=== PATIENT | female | born 1955 | race Two or more races ===

== ENCOUNTER 2017-11-30 09:38 | Outpatient (CLI) | payer OTHER | END 2017-11-30 10:08 | disposition home or self-care (01) | LOC: NUCLEAR 09:38 | DX: M15.8 Other polyosteoarthritis (principal); M06.4 Inflammatory polyarthropathy | CPT/HCPCS: 78315; A9503 ==

== ENCOUNTER 2022-02-17 11:21 | Inpatient (IN) | payer OTHER ==
[~2022-02-17] VITALS: Ht 154.9 cm; Wt 117.9 kg
[2022-02-17] MEDS ORDERED: VALSARTAN-HCTZ1 EAC3 PO (12:08)
[2022-02-17] MEDS ORDERED: ATORVASTATIN CA20 MG PO (12:08)
[2022-02-17] MEDS ORDERED: CARVEDILOL25 M1 PO (12:08)
[2022-02-17] MEDS ORDERED: SYNTHROID150 MCG (12:09)
[2022-02-17] MEDS ORDERED: SYMBICORT 16010.2 GM IH (12:09)
[2022-02-17] MEDS ORDERED: DOXAZOSIN MESYLA2 MG PO (12:09)
[2022-02-17] MEDS ORDERED: ACID REDUCER20 M1 PO (12:10)
[2022-02-17] MEDS ORDERED: HUMIRA(CF)40 MG/0.4 SQ (12:11)
--- NOTE | 2022-02-17 12:18 | NUR ---
SE RECIBE PACIENTE ALERTA, ORIENTADA X 3 ESFERAS REFIERE SENTIRSE AHOGADA, Y HINCHADA SE ESTIMAN S/V JU=[id number] SE PRESENTA A OBICARIE, SE UBICA EN AREA DE OBSERVACION
--- NOTE | 2022-02-17 13:59 | NUR ---
PTE EVALUADA POR DRA. LANDAVERDE. SE ORIENTA PTE SOBRE TRATAMIENTO A SEGUIR, EL CUAL REFIERE ENTENDER. SE CONECTA A MONITOR CARDIACO Y OXIMETRIA DE PULSO CONTINUA, SE COLECTAN MUESTRAS Y SE CANALIZA PTE UTILIZANDO MEDIDAS ASEPTICAS. SE ADMINISTRAN MEDICAMENTO MAGALY ORDEN MEDICA. SE [place] FOLLEY CATHETER #16 UTILIZANDO MEDIDAS ESTERILES DRENANDO A GRAVEDAD ORINA COLOR AMARILLO YANET. PERSONAL DE TERAPIA RESPIRATORIA COLOCA VENTURY MASK AL 50%.
--- NOTE | 2022-02-17 15:57 | NUR ---
SE RECIBE PACIENTE EN AREA DE ICU #2 CAMA #1. SE OFRECE TOMASZ PARA EVALUAR CON- DICION,ORIENTAR DE CONTINUIDAD Y BRINDAR CUIDADOS CORRESPONDIENTES. PACIENTE ALERTA Y ORIENTADA POR KENDRICK REFIERE ENTENDER. PACIENTE CONECTADA A MONITOR CAR- DIACO CON SATUROMETRO. VENTURY MASK AL 50%. DOS H/L EN BRAZO Y MANO LADO DERECHO ANGIOS #20, LIBRES DE DOLOR AL TACTO,EDEMA Y/O ERITEMA. RIVER PATENTE A GRAVEDAD CON ORINA AMARILLO YANET.SE MIDEN Y DOCUMENTAN S/V. BARANDAS ELEVA- JARAMILLO POR MCKENZIE SEGURIDAD. EN ESPERA DE CONSULTA CON DR ALTAMIRANO. SE MONITOREA POR CAMBIOS SIGNIFICATIVOS.
== END 2022-02-21 20:46 | disposition home or self-care (01) | DRG 291 ==
LOC: ER 11:21 → MEDJ 21:40
PROVIDERS: ADMIT Internal Medicine; ATTEND Internal Medicine
PROC: 4A12X4Z Monitoring of Cardiac Electrical Activity, External Approach (ICD-10-PCS; principal; 2022-02-17)
PROC: BW24ZZZ Computerized Tomography (CT Scan) of Chest and Abdomen (ICD-10-PCS; 2022-02-17)
PROC: 5A0945A Assistance with Respiratory Ventilation, 24-96 Consecutive Hours, High Flow/Velocity Cannula (ICD-10-PCS; 2022-02-17)
PROC: B246ZZZ Ultrasonography of Right and Left Heart (ICD-10-PCS; 2022-02-18)
DX: I50.33 Acute on chronic diastolic (congestive) heart failure (principal); J18.8 Other pneumonia, unspecified organism; J91.8 Pleural effusion in other conditions classified elsewhere; J98.11 Atelectasis; I11.0 Hypertensive heart disease with heart failure; J44.9 Chronic obstructive pulmonary disease, unspecified; J45.998 Other asthma; R60.1 Generalized edema; R09.02 Hypoxemia; E66.8 Other obesity; Z20.822 Contact with and (suspected) exposure to COVID-19; Z87.891 Personal history of nicotine dependence

== ENCOUNTER 2023-02-09 10:00 | Outpatient (CLI) | payer OTHER ==
[~2023-02-09 10:00] MED LIST: ACID REDUCER20 M1 PO; ATORVASTATIN CA20 MG PO; CARVEDILOL25 M1 PO; DOXAZOSIN MESYLA2 MG PO; HUMIRA(CF)40 MG/0.4 SQ; SYMBICORT 16010.2 GM IH; SYNTHROID150 MCG; VALSARTAN-HCTZ1 EAC3 PO
== END 2023-02-09 10:02 | disposition home or self-care (01) ==
LOC: NUCLEAR 10:00
PROVIDERS: ATTEND Internal Medicine Cardiovascular Disease
DX: I34.81 Nonrheumatic mitral (valve) annulus calcification (principal)

== ENCOUNTER 2023-11-05 10:54 | Outpatient (CLI) | payer OTHER | END 2023-11-05 11:00 | disposition home or self-care (01) | LOC: NUCLEAR 10:54 | PROVIDERS: ATTEND Internal Medicine Cardiovascular Disease | DX: I11.9 Hypertensive heart disease without heart failure (principal) ==